=== PATIENT | male | born 1960 | race Caucasian/White ===

== ENCOUNTER → 2016-08-02 | Outpatient (CLI) | payer OTHER ==
[2016-08-02 15:34] LABS: BUN/CREATININE RATIO 11 (0-10)
== END ==
LOC: LAB 14:38
PROVIDERS: Internal Medicine
DX: E78.2 Mixed hyperlipidemia (principal); I10 Essential (primary) hypertension
CPT/HCPCS: 36415; 80053; 80061

== ENCOUNTER → 2016-08-12 | Outpatient (CLI) | payer OTHER | LOC: RT 11:39 | DX: R00.2 Palpitations (principal) ==

== ENCOUNTER 2016-09-30 11:57 | Emergency (ER) | payer OTHER ==
[2016-09-30 13:38] LABS: HEMOGLOBIN 13.3 gm/dl (14.0-17.5); RED BLOOD COUNT 4.25 M/UL (4.20-5.50); WHITE BLOOD COUNT 7.8 K/UL (4.5-11.0)
[2016-09-30 14:06] LABS: BUN/CREATININE RATIO 19 (0-10)
== END 2016-09-30 21:49 | disposition home or self-care (01) ==
LOC: ER1 11:57
PROVIDERS: Physician Assistant
DX: R07.9 Chest pain, unspecified (principal); R06.02 Shortness of breath; R11.0 Nausea; I25.10 Atherosclerotic heart disease of native coronary artery without angina pectoris; I10 Essential (primary) hypertension; E78.5 Hyperlipidemia, unspecified; J44.9 Chronic obstructive pulmonary disease, unspecified; Z87.891 Personal history of nicotine dependence; Z88.0 Allergy status to penicillin; Z79.82 Long term (current) use of aspirin; Z79.891 Long term (current) use of opiate analgesic; Z79.899 Other long term (current) drug therapy
CPT/HCPCS: 36415; 71010; 80053; 81001; 82550; 82553; 83874; 84484; 85025; 93005; 99285

== ENCOUNTER 2020-08-20 13:13 | Inpatient (IN) | payer OTHER ==
[~2020-08-20] VITALS: Ht 180.3 cm; Wt 107.5 kg
[~2020-08-20 13:13] MED LIST: ASPIRIN 325MG325 MG PO; BANOPHEN25 MG PO; CLOPIDOGREL75 MG PO; ENTRESTO 24 MG1 EACH PO; IMDUR ER TAB 3030 MG PO; ISORDIL TAB 3030 MG PO; LIPITOR80 MG PO; METOPROLOL SUCC25 MG PO; NORCO 7.5-3251 EACH PO; OMEGA 3 1,0001 EACH PO; PANTOPRAZOLE SO40 MG PO; SERTRALINE HCL100 MG PO; TOPROL XL25 MG PO; ULTRAM50 MG PO; VENTOLIN/PROVE0.5 ML INH; ZANAFLEX4 M1 PO
[2020-08-20 16:40] LABS: HEMOGLOBIN 14.2 gm/dl (14.0-17.5); RED BLOOD COUNT 4.64 M/UL (4.20-5.50); WHITE BLOOD COUNT 6.2 K/UL (4.5-11.0)
[2020-08-20 16:57] LABS: BUN/CREATININE RATIO 10 (0-10)
[2020-08-20] MEDS ORDERED: QUETIAPINE FUMA25 MG PO (21:30)
[2020-08-20] MEDS ORDERED: KEPPRA 500 MG500 MG PO (21:30)
[2020-08-20] MEDS ORDERED: LASIX TAB 20 MG20 MG PO (21:31)
[2020-08-20] MEDS ORDERED: SIMVASTATIN20 MG PO (23:20)
[2020-08-20] MEDS ORDERED: LANSOPRAZOLE30 MG PO (23:23)
[2020-08-20] MEDS ORDERED: LISINOPRIL10 MG PO (23:25)
[2020-08-20] MEDS ORDERED: LOPRESSOR 25 MG25 MG PO (23:31)
[2020-08-21 04:17] LABS: HEMOGLOBIN 13.8 gm/dl (14.0-17.5); RED BLOOD COUNT 4.39 M/UL (4.20-5.50); WHITE BLOOD COUNT 5.5 K/UL (4.5-11.0)
[2020-08-21 04:40] LABS: BUN/CREATININE RATIO 14 (0-10)
--- NOTE | 2020-08-21 10:30 | NUR ---
CALLED DR MARQUEZ RELATED TO PATIENT ORDER FOR CT SCAN OF HEAD WITH CONTRAST. BLAS HAS ALLERGY TO CONTRAST DYE. STATED TO CONTACT ORDERING PHYSICIAN.
--- NOTE | 2020-08-21 10:33 | NUR ---
CONTACTED NATHAN SPENCE RELATED TO CT ANGIO OF HEAD WITH CONTRAST. INFORMED OF PATIENT ALLERGY TO CONTRAST. STATED WOULD TALK WITH MD AND CALL ME BACK.
--- NOTE | 2020-08-21 10:36 | NUR ---
RECEIVED CALL BACK FROM NATHAN SPENCE. NEW ORDER TO D/C CT ANGIO OF HEAD.
[2020-08-22] MEDS ORDERED: ATORVASTATIN CA20 MG PO (11:44)
[2020-08-22] MEDS ORDERED: KEPPRA 500 MG500 MG PO (11:44)
[2020-08-22] MEDS ORDERED: LISINOPRIL10 MG PO (15:29)
== END 2020-08-22 16:43 | disposition home or self-care (01) | DRG 65 ==
LOC: ER1 13:13 → MED SURG 4 17:40 → CDU 17:40 → MED SURG 4 18:59
PROVIDERS: Family Medicine; ADMIT Internal Medicine
DX: I63.9 Cerebral infarction, unspecified (principal); I50.22 Chronic systolic (congestive) heart failure; I25.5 Ischemic cardiomyopathy; I11.0 Hypertensive heart disease with heart failure; I25.10 Atherosclerotic heart disease of native coronary artery without angina pectoris; J44.9 Chronic obstructive pulmonary disease, unspecified; G40.909 Epilepsy, unspecified, not intractable, without status epilepticus; G89.29 Other chronic pain; Z20.822 Contact with and (suspected) exposure to COVID-19; M54.9 Dorsalgia, unspecified; F17.200 Nicotine dependence, unspecified, uncomplicated; F11.90 Opioid use, unspecified, uncomplicated; E78.5 Hyperlipidemia, unspecified; Z95.810 Presence of automatic (implantable) cardiac defibrillator; Z90.49 Acquired absence of other specified parts of digestive tract; Z82.49 Family history of ischemic heart disease and other diseases of the circulatory system; Z95.1 Presence of aortocoronary bypass graft
CPT/HCPCS: ECHO; 36415; 70450; 71045; 80048; 80053; 80061; 80076; 82550; 82553; 83874; 84484; 85025; 85610; 93005; 93306; 93880; 94640; 94664; 94760; 97116; 97162; 97166; 99285; J1650; U0002

== ENCOUNTER 2021-07-11 21:05 | Emergency (ER) | payer OTHER ==
[~2021-07-11 21:05] MED LIST changes: +ATORVASTATIN CA20 MG PO; +KEPPRA 500 MG500 MG PO; +LANSOPRAZOLE30 MG PO; +LASIX TAB 20 MG20 MG PO; +LISINOPRIL10 MG PO; +LOPRESSOR 25 MG25 MG PO; +QUETIAPINE FUMA25 MG PO; +SIMVASTATIN20 MG PO
[2021-07-11 21:39] LABS: HEMOGLOBIN 13.6 gm/dl (14.0-17.5); RED BLOOD COUNT 4.32 M/UL (4.20-5.50); WHITE BLOOD COUNT 5.2 K/UL (4.5-11.0)
[2021-07-11 22:06] LABS: BUN/CREATININE RATIO 14 (0-10)
== END 2021-07-12 03:00 | disposition home or self-care (01) ==
LOC: ER1 21:05
PROVIDERS: Family Medicine
DX: F41.9 Anxiety disorder, unspecified (principal); R07.9 Chest pain, unspecified; G40.909 Epilepsy, unspecified, not intractable, without status epilepticus; I10 Essential (primary) hypertension; Z95.0 Presence of cardiac pacemaker; Z79.82 Long term (current) use of aspirin; Z79.02 Long term (current) use of antithrombotics/antiplatelets; Z88.0 Allergy status to penicillin
CPT/HCPCS: 71045; 80053; 82550; 82553; 83880; 84484; 85025; 93005; 99285